=== PATIENT | female | born 1965 | race Caucasian/White ===

== ENCOUNTER 2017-02-27 00:22 | Emergency (ER) | payer BC ==
[~2017-02-27] VITALS: Ht 157.5 cm; Wt 66.0 kg
[~2017-02-27 00:22] MED LIST: LEVO.2 PO; PREM0.3T2 PO
[2017-02-27 00:28] VITALS: BP 140/71; PULSE 95; RESP 18; TEMP 97.9; O2SAT 97
[2017-02-27] MEDS ORDERED: TETANUS/DIPHTHERIA TOXOID ADULT 0.5 ML VIAL IM ONE (00:45)
[2017-02-27] MEDS ORDERED: BUPR100CR PO (01:14)
[2017-02-27] MEDS ORDERED: LEVO-86 PO (01:14)
[2017-02-27] MEDS ORDERED: MONT10TA2 PO (01:14)
[2017-02-27] MEDS ORDERED: FLUT1INH INH (01:14)
[2017-02-27] MEDS ORDERED: LEXA10TA PO (01:14)
[2017-02-27] MEDS ORDERED: ALPR.25 PO (01:14)
--- NOTE | 2017-02-27 01:40 | PD ---
HPI Chief Complaint: Laceration/Skin Injury Time Seen by Provider: 01:31 Travel History International Travel<30 days: No Contact w/Intl Traveler<30days: No Traveled to known affect area: No History of Present Illness HPI 51-year-old female presents to the emergency department by EMS transport for evaluation of laceration to the forehead. Patient reports that she did drink alcohol tonight. Patient was drinking wine. Patient states that as she was preparing to go to bed she tripped over her dog and hit her forehead on the door frame. Patient states she did not get knocked to the floor she did not lose consciousness she does not have a headache should not injure her neck denies neck pain and denies injury to her chest abdomen back pelvis or extremities. Patient reports that EMS was called by the police who had just been at her residence to do a well person check at the request of her daughter and when they were returning her information the identified that she had fallen after they had just checked on her and they called for EMS to transport her to the hospital. Patient reports she does have a history of depression and is under the care of a psychotherapist and states that she has had depression as all of her children live out of state. Patient denies any plan to harm herself or others. PFSH Past Medical History Narrative Medical Depression hypothyroidism gastric bypass cholecystectomy tonsillectomy carpel tunnel release alcohol use nursing notes reviewed Depression: Yes Diminished Hearing: No Immunizations Current: Yes Thyroid Disease: Yes Tetanus Vaccination: > 5 Years Influenza Vaccination: Yes PNEUMOCCOCAL Vaccine (Year): 2004 ?: Not Menopausal: Yes Past Surgical History Abdominal Surgery: Yes (GASTRIC BIPASS) Cholecystectomy: Yes Tonsillectomy: Yes Social History Alcohol Use: Yes Tobacco Use: No Substance Use: No Allergies-Medications (Allergen,Severity, Reaction): Coded Allergies: Ibuprofen (Verified Allergy, Mild, 02/27/17) Penicillin (Verified Allergy, Mild, 02/27/17) Sulfa (Verified Allergy, Mild, 02/27/17) Codeine (Verified Allergy, Unknown, 02/27/17) Reported Meds & Prescriptions Reported Meds & Active Scripts Active Reported Xanax (Alprazolam) 0.25 Mg Tab 0.25 Mg PO DAILY Breo Ellipta Inh (Fluticasone/Vilanterol) 100-25 Mcg/Act Inh 1 Puff INH DAILY Use daily at the same time. Singulair (Montelukast Sodium) 10 Mg Tab 10 Mg PO DAILY Wellbutrin SR 12 HR (Bupropion HCl) 100 Mg Tab 100 Mg PO DAILY Lexapro (Escitalopram Oxalate) 10 Mg Tab 10 Mg PO DAILY Synthroid (Levothyroxine Sodium) 137 Mcg Tab 137 Mcg PO DAILY Review of Systems Except as stated in HPI: all other systems reviewed are Neg General / Constitutional: No: Fever, Chills Eyes: No: Visual changes HENT: No: Headaches, Neck Pain Cardiovascular: No: Chest Pain or Discomfort Respiratory: No: Shortness of Breath Gastrointestinal: No: Abdominal Pain Genitourinary: No: Flank Pain Musculoskeletal: No: Myalgias, Arthralgias Skin: Positive Other (forehead laceration), No Rash Neurologic: No: Weakness, Dizziness, Syncope, Focal Abnormalities, Coordination Problem, Headache, Change in Mentation, Slurred Speech, Paresthesia Psychiatric: Positive: Anxiety, Depression, No: Suicidal Ideations, Mood Disorder, Substance Abuse, Homicidal Ideation Endocrine: No: Heat Intolerance Hematologic/Lymphatic: No: Easy Bruising Physical Exam Narrative GENERAL: Well-developed well-nourished female in no acute distress no respiratory distress; GCS 15 SKIN: Warm and dry. Left palm sutures in place status post carpal tunnel release surgery no redness no induration no drainage nontender HEAD: Atraumatic. Normocephalic except for midline forehead 2 cm linear laceration with good wound edge approximation no soft tissue swelling no ecchymosis nontender to palpation no bony abnormality. EYES: Pupils equal and round. No scleral icterus. No injection or drainage. Extraocular muscles intact. ENT: No nasal bleeding or discharge. Mucous membranes pink and moist. Airway is patent. No hemotympanum bilaterally. NECK: Trachea midline. No JVD. No midline tenderness to direct palpation along the cervical spine no bony step-off. CARDIOVASCULAR: Regular rate and rhythm. RESPIRATORY: No accessory muscle use. Clear to auscultation. Breath sounds equal bilaterally. GASTROINTESTINAL: Abdomen soft, non-tender, nondistended. Hepatic and splenic margins not palpable. MUSCULOSKELETAL: Extremities without clubbing, cyanosis, or edema. No obvious deformities. NEUROLOGICAL: Awake and alert. No obvious cranial nerve deficits. Motor grossly within normal limits. Five out of 5 muscle strength in the arms and legs. Normal speech. PSYCHIATRIC: Appropriate mood and affect; insight and judgment normal. Data Data Last Documented VS Vital Signs Date Time Temp Pulse Resp B/P Pulse Ox O2 Delivery O2 Flow Rate FiO2 02/27/17 03:23 83 18 97 02/27/17 02:52 125/77 Room Air 02/27/17 00:[address] Brain W/O Iv Contrast(Rout) (02/27/17 ) Tetanus/Diphtheria Tox Adult (Tetanus/Di (02/27/17 00:45) MDM Medical Decision Making Medical Screen Exam Complete: Yes Emergency Medical Condition: Yes Medical Record Reviewed: Yes Interpretation(s) Last Impressions Head CT 02/27/17 0000 Signed Impressions: Service Date/Time: Monday, February 27, 2017 02:29 - CONCLUSION: Unremarkable CT scan of the brain. David Rey MD Differential Diagnosis Laceration minor [facility] I[facility] alcohol use depression mood disorder Narrative Course Patient here by EMS after non-syncopal trip and fall with laceration to the midline forehead. Patient admits to drinking alcohol. Patient states history of depression but denies being suicidal or having suicidal ideation. Patient's tetanus status greater than 5 years, tetanus status boosted; wound site cleansed and wound edges approximated with wound adhesive/Dermabond. CT brain noncontrast ordered. At 2 AM patient remains cooperative, appropriately interactive, laceration has been repaired with wound adhesive, CT brain noncontrast reveals no obvious fracture or intracranial bleed or abnormality, patient is not suicidal and has no suicidal ideation and has no plan. Patient appears stable for discharge to home. Patient has appointment with her hand surgeon tomorrow to have sutures removed. Patient has access to primary care provider for 2 day wound check and is encouraged to return to the emergency department for wound check for any signs of infection which have been discussed with the patient. Patient again denies being suicidal and having suicidal ideation. Patient aware of daughter's concern as she lives out of state and local to her mother but patient has been and remains in the care of her psychologist/ psychotherapist and is the patient has been participating actively with her own care with the ongoing management/assistance of her provider and is compliant with her medications. At this time patient appears to be stable and safe for outpatient management. Procedures Procedure Narrative LACERATION LOCATION: Forehead LENGTH: 2 cm NUMBER OF STITCHES/GRACIE: Wound adhesive REPAIR: The area of the laceration was prepped with Betadine and sterilely draped. The wound was copiously irrigated and explored without evidence of foreign body, tendon injury or neurovascular injury. The wound was closed using wound adhesive/Dermabond. This was a single layer repair. The patient was advised to keep the site clean and dry. Patient tolerated the procedure well. Diagnosis Primary Impression: Forehead laceration Qualified Code: S01.81XA - Forehead laceration, initial encounter Additional Impressions: Closed head injury Qualified Code: S09.90XA - Closed head injury, initial encounter H/O: depression Referrals: Primary Care Physician 2 days Patient Instructions: General Instructions Departure Forms: Tests/Procedures, Work Release Special Instructions: no work x 1 day Additional Instructions: Follow head injury precautions 24 hours Follow wound care directions with wound check at 2 days Follow-up with primary care provider call office in a.m. to schedule follow-up appointment Return to the emergency department for any concerns or change in condition Avoid alcohol use May take as tolerated acetaminophen/Tylenol for minor pain or fever 100.4F or greater Use ice intermittently for the next 12-24 hours to areas of soft tissue swelling Med/Other Pt SpecificInfo: No Change to Meds Disposition: 01 DISCHARGE HOME Condition: Stable Irena Sarmiento MD Feb 27, 2017 01:40
[2017-02-27 01:51] VITALS: BP 122/68; PULSE 85; RESP 18; O2SAT 99
--- NOTE | 2017-02-27 02:50 | RADHPO ---
EXAM DATE/TIME: 02/27/2017 02:29 [facility] COMPARISON: No previous studies available for comparison. INDICATIONS : Fall. Frontal laceration. RADIATION DOSE: 61.48 CTDIvol (mGy) MEDICAL HISTORY : None SURGICAL HISTORY : Tonsillectomy. ENCOUNTER: Initial ACUITY: 1 day PAIN SCALE: 2/10 LOCATION: frontal TECHNIQUE: Multiple contiguous axial images were obtained of the head. Using automated exposure control and adj ustment of the mA and/or kV according to patient size, radiation dose was kept as low as reasonably a chievable to obtain optimal diagnostic quality images. FINDINGS: CEREBRUM: The ventricles are normal for age. No evidence of midline shift, mass lesion, hemorrhage or acute in farction. No extra-axial fluid collections are seen. POSTERIOR FOSSA: The cerebellum and brainstem are intact. The 4th ventricle is midline. The cerebellopontine angle i s unremarkable. EXTRACRANIAL: The visualized portion of the orbits is intact. Focal soft tissue swelling over the forehead. SKULL: The calvaria is intact. No evidence of skull fracture. CONCLUSION: Unremarkable CT scan of the brain. David Rey MD on February 27, 2017 at 2:47 Board Certified Radiologist. This report was verified electronically.
[2017-02-27 02:52] VITALS: BP 125/77; PULSE 83; RESP 18; O2SAT 96
== END 2017-02-27 03:20 | disposition home or self-care (01) ==
LOC: PHED 00:22
DX: S01.81XA Laceration without foreign body of other part of head, initial encounter (principal); S09.90XA Unspecified injury of head, initial encounter; Z23 Encounter for immunization; W01.198A Fall on same level from slipping, tripping and stumbling with subsequent striking against other object, initial encounter; Y93.89 Activity, other specified; Y92.009 Unspecified place in unspecified non-institutional (private) residence as the place of occurrence of the external cause; F33.9 Major depressive disorder, recurrent, unspecified
CPT/HCPCS: 12011; 70450; 90471; 90714